=== PATIENT | female | born 1930 | race Caucasian/White ===

== ENCOUNTER 2017-03-27 13:53 | Observation (INO) ==
--- NOTE | 2017-03-27 18:29 | Orthopedic Consult Note ---
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 I did discuss the diagnosis in detail the patient. My strong suspicion based on history and physical exam is tophaceous gout with acute gouty flare. This can be associated with concurrent infection. My recommendation was for aspiration of the left index finger PIP joint with synovial fluid analysis. This will help establish the diagnosis. Informed consent was obtained and under sterile technique an 18-gauge needle was used to aspirate the left index finger proximal interphalangeal joint. About a quarter cc of chalky white fluid was aspirated consistent with gouty arthritis. The lab indicated that there was only enough fluid for Gram stain, culture, and crystal analysis. The fluid was sent for the studies. I did contact the lab shortly thereafter and uric acid crystals were identified. Minimal white blood cell count per high fire field and no organisms were seen on Gram stain. At this point my suspicion is low for infection and my recommendation at this point in the acute setting would be for anti- inflammatories and medical treatment for acute gouty flare and follow-up of the culture of the left index finger. I will follow her clinically, and she may require debridement of the left index finger proximal interphalangeal joint depending on culture results. 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 Price is a 86 year old female who was transferred from [place] emergency department with concern for her left index finger infection. The patient was admitted to the hospitalist and orthopedics was counseled that to assist in the evaluation and management. The patient has been complaining of about 2 weeks of left index finger pain without injury. It became red and swollen and she went to the emergency department today because of worsening pain. She was given a dose of Vancomycin. She reports no other joint pains or history of arthritis or gout. She denies any feelings of illness or inoculations are punctures to the left index finger. She has not had any formal workup or treatment for this. Pain is worse with movement and better at rest and is located right at the left index finger PIP joint. The pain is worse dorsally. It is described as sharp. No numbness, tingling, or any other associated signs or symptoms. No other modifying factors. Past Med Surg Social Fam HX - Past Medical History Medical history: coronary artery disease, hyperlipidemia, hypertension, myocardial infarction, thyroid disease Psychiatric history: no psych history - Past Surgical History Surgical History: orthopedic, other - Social History Smoking Status: Never smoker Smokeless Tobacco Status: No Alcohol use: none Drug use: none - Family History Mother Living Status: Hx Family Cardiac Disorders: Yes (CAD) Medications and Allergies Aspirin [Lo-Dose Aspirin EC] 81 mg PO DAILY 07/10/16 [History] Atenolol [Tenormin] 50 mg PO DAILY 07/10/16 [History] Citalopram [CeleXA] 20 mg PO DAILY 07/10/16 [History] Clopidogrel Bisulfate [Plavix] 75 mg PO DAILY 07/10/16 [History] Docusate [Colace] 100 mg PO DAILY #10 capsule 07/10/16 [Rx] Furosemide [Lasix] 40 mg PO DAILY 07/10/16 [History] Gabapentin [Neurontin] 600 mg PO HS 07/10/16 [History] Levothyroxine [Synthroid] 75 mcg PO 0630 07/10/16 [History] Lisinopril-HCTZ 10-12.5 [Prinzide 10-12.5] 1 each PO DAILY 07/10/16 [History] Simvastatin [Zocor] 40 mg PO HS 07/10/16 [History] Doxycycline Hyclate [Vibramycin] 100 mg PO BID 03/27/17 [History] Tramadol HCl [Ultram] 50 mg PO BID PRN 03/27/17 [History] Ibuprofen 400 mg PO Q8H PRN #20 tablet 03/28/17 [Rx] predniSONE [PredniSONE] 10 mg PO DAILY #31 tablet 03/28/17 [Rx] Allergies valsartan [From Diovan] Allergy (Verified 08/06/15 13:30) See Comments All Systems Reviewed: Constitutional and musculoskeletal systems were reviewed and are negative unless otherwise stated in history of present illness. Physical Exam - Constitutional Vitals: Temp Pulse Resp BP Pulse Ox 98.1 F 50 16 92/45 98 03/27/17 16:39 03/27/17 16:39 03/27/17 16:39 03/27/17 16:39 03/27/17 16:39 CONSTITUTIONAL -Vitals reviewed -The patient is well developed, well nourished, well groomed PSYCHIATRIC -Fully alert and oriented x 3 -Pleasant mood LEFT UPPER EXTREMITY Inspection of the index finger shows swelling and redness localized to the proximal interphalangeal joint. There is a subtle sheen of white below the skin consistent with tophaceous gout. The joint is focally tender. Motion is from about 20 degrees to 50 degrees with moderate pain. No instability of the PIP joint is noted. No other lesions noted about the left hand or deformities. No other tenderness is noted. No areas of drainage. The patient can actively flex and extend all digits, extend the thumb, cross the index and long fingers, make an okay sign, and oppose the thumb. The fingertips are all grossly sensate and well-perfused, and the radial artery pulses 2+. Diagnostic Imaging: I did personally review and interpret x-rays of the left index finger which show joint space narrowing at the proximal interphalangeal joint and nonspecific resorption of proximal phalangeal condylar bone. Focal soft tissue swelling at the PIP joint is noted at the index finger. Results - Labs Result Diagrams: 03/28/17 05:43 03/28/17 05:43 Labs: All other labs normal. Consult Discharge Plan - Plan Instructions: Hypothyroidism (DC), Chronic Hypertension (DC) Additional Instructions: Follow-up with orthopedic doctor within 2 weeks Referrals: Roman Becerril MD [Partnered Physician] - Prescriptions: Ibuprofen 400 mg PO Q8H PRN #20 tablet PRN Reason: Pain predniSONE [PredniSONE] 10 mg PO DAILY #31 tablet
[2017-03-27] MEDS ORDERED: Ibuprofen 400 MG TABLET PO PRN (19:48)
[2017-03-27] MEDS ORDERED: Naloxone 0.4 MG/ML INJ IVP PRN (19:48)
[2017-03-27] MEDS ORDERED: Colchicine 0.6 MG TABLET PO ONE ×2 (19:51→19:57)
[2017-03-27] MEDS ORDERED: Colchicine 0.6 MG TABLET PO SCH (20:00)
[2017-03-27] MEDS ORDERED: traMADol 50 MG TABLET PO PRN (20:29)
--- NOTE | 2017-03-27 20:57 | Internal Med History&Physical ---
Date of Encounter: 03/27/17 Time of Encounter: 20:54 Assessment and Plan (1) Gout attack Current visit: Yes Status: Acute PIP joint of index finger swollen, red and tender. Dr. Becerirl of orthopedic surgery assessed patient and feels this is consistent with gout attack. One dose of colchicine given, but as symptoms have been going on for greater than 3 days, will treat with prednisone. Hyperuricemia may be secondary to renal impairment as patient is in SAUNDRA. Once gout attack resolved consider starting prophylaxis with allopurinol. Qualifiers: Gout site: hand Gout etiology: unspecified cause Laterality: left Qualified Code(s): M10.9 - Gout, unspecified (2) SAUNDRA (acute kidney injury) Current visit: Yes Status: Acute BUN and creatinine elevated to 62 and 2.14 respectively. Hold lasix and lisinopril. IV fluids 0.9NS at 60mL/hr. UA ordered. Retroperitoneal ultrasound ordered. Consider consult to Nephrology. (3) Hypertension Current visit: Yes Status: Acute Holding lasix and lisinopril due to SAUNDRA. Patient's blood pressure has been well controlled since arrival. Continue home dose of atenolol. Hold for HR < 60 or SBP < 100. Qualifiers: Hypertension type: essential hypertension Qualified Code(s): I10 - Essential (primary) hypertension (4) Hypothyroid Current visit: Yes Status: Acute Continue home dose of synthroid Qualifiers: Hypothyroidism type: unspecified Qualified Code(s): E03.9 - Hypothyroidism , unspecified (5) DVT prophylaxis Current visit: Yes Status: Acute anti-embolic stockings Heparin SQ TID Internal Medicine - H&P: HPI Chief complaint: finger swelling, redness and tenderness Admitted From: Hospital to Hospital Transfer Plans for Post Hospital Care: Home History of present illness: Ms. Price is a 86 year old female with hypertension, hyperlipidemia, coronary artery disease, hypothyroid, presents from [place] [facility] with concern for septic arthritis. Patient reports that her left index finger started having swelling, redness, and tenderness about 2 weeks ago, and has progressively gotten worse over time. She presented to the urgent care a few days ago was diagnosed with cellulitis and given a prescription for doxycycline by mouth. She presented to the [place] ED as it was not getting better, they were concerned for osteomyelitis or septic arthritis and requested transfer to. Patient denies any fever, chills, sweats, body aches. Patient denies any nausea , vomiting, diarrhea. Dr. Rodriguez of orthopedic surgery evaluated patient and performed an aspiration of the joint, and feels that this is consistent with an acute gouty flare. Uric acid was elevated at 11. Patient's white blood cell count is normal at 9.2. Labs did reveal acute kidney injury with creatinine of 2.14 up from previous baseline of normal. Patient denies any known history of kidney problems. On exam, patient alert and oriented, in no acute distress. Lungs are clear bilaterally to auscultation, heart has regular rate and rhythm, abdomen soft nontender. Left index finger proximal interphalangeal joint with erythema, tenderness to palpation, and swelling. Past Med Surg Social Fam HX - Past Medical History Medical history: coronary artery disease, hyperlipidemia, hypertension, myocardial infarction, thyroid disease Psychiatric history: no psych history - Past Surgical History Surgical History: orthopedic, other - Social History Smoking Status: Never smoker Smokeless Tobacco Status: No Alcohol use: none Drug use: none - Family History Mother Living Status: Hx Family Cardiac Disorders: Yes (CAD) Internal Medicine - H&P: Meds Aspirin [Lo-Dose Aspirin EC] 81 mg PO DAILY 07/10/16 [History] Atenolol [Tenormin] 50 mg PO DAILY 07/10/16 [History] Citalopram [CeleXA] 20 mg PO DAILY 07/10/16 [History] Clopidogrel Bisulfate [Plavix] 75 mg PO DAILY 07/10/16 [History] Docusate [Colace] 100 mg PO DAILY #10 capsule 07/10/16 [Rx] Furosemide [Lasix] 40 mg PO DAILY 07/10/16 [History] Gabapentin [Neurontin] 600 mg PO HS 07/10/16 [History] Levothyroxine [Synthroid] 75 mcg PO 0630 07/10/16 [History] Lisinopril-HCTZ 10-12.5 [Prinzide 10-12.5] 1 each PO DAILY 07/10/16 [History] Simvastatin [Zocor] 40 mg PO HS 07/10/16 [History] Doxycycline Hyclate [Vibramycin] 100 mg PO BID 03/27/17 [History] Tramadol HCl [Ultram] 50 mg PO BID PRN 07/12/17 [History] Allergies valsartan [From [employer]] Allergy (Verified 08/06/15 13:30) See Comments All Systems PM: A 10-system review of systems was performed and is negative for pertinent findings except as documented above in the HPI. - Constitutional Constitutional: no chills, no fever(s), no night sweats - EENT Eyes: no change in vision, no discharge, no pain, no photophobia Ears: no ear discharge, no ear pain, no tinnitus Nose, mouth and throat: no dysphagia, no nasal discharge, no neck pain, no sore throat - Cardiovascular Cardiovascular ROS IM: no chest pain, no diaphoresis, no dyspnea, no lightheadedness, no palpitations, no syncope - Respiratory Respiratory: no cough, no dyspnea, no wheezing, no excessive phlegm production - Gastrointestinal Gastrointestinal: no abdominal pain, no diarrhea, no hematemesis, no hematochezia, no melena, no nausea, no vomiting - Genitourinary Genitourinary: no change in urinary stream, no dysuria, no flank pain, no hematuria - Musculoskeletal Musculoskeletal ROS IM: arthralgias (left index finger), joint swelling (left index finger), no numbness, no tingling - Integumentary Integumentary IM: erythema (left index finger), no rash, no unusual bruising - Neurological Neurological ROS: no confusion, no convulsions, no focal weakness, no numbness, no tingling, no tremor(s) - Hematologic/Lymphatic Hematologic/Lymphatic: no easy bruising - Constitutional Vitals: Temp Pulse Resp BP Pulse Ox 98.1 F 50 16 92/45 98 03/27/17 16:39 03/27/17 16:39 03/27/17 16:39 03/27/17 16:39 03/27/17 16:39 General appearance: Present: A&O X 3, pleasant, no acute distress - Head Head exam: Present: atraumatic, normocephalic - Eye Eye exam: Present: PERRL, conjuntiva pink, sclera anicteric Pupils: Present: PERRL - Neck Neck exam general surgery: Present: supple, trachea midline. Absent: lymphadenopathy - Respiratory Respiratory exam: Present: CTAB. Absent: accessory muscle use, rales, rhonchi, wheezes - Cardiovascular Cardiovascular exam: Present: RRR, +S1, +S2. Absent: diastolic murmur, gallop, rubs, systolic murmur - GI/Abdominal GI/Abdominal exam: Present: normal bowel sounds, soft, no peritoneal signs. Absent: distended, tenderness - Extremities Exam Extremities exam: Present: warm, radial pulses palpable and symetrical. Absent : calf tenderness, cyanotic, pedal edema - Expanded Upper Extremities Exam Hand wrist exam: Present: erythema (left index PIP), swelling (left index PIP), tenderness (left index PIP) - Neurological Exam Neurological exam: Present: CN II-XII intact, oriented X3, no focal deficits. Absent: pronater drift, facial droop, speech deficit - Skin Skin exam: Present: dry, intact Internal Med - H&P Results - Labs Labs: Labs from [place]: WBC 9.2 Hgb 11.3 Hct 32.9 Plt 307 Na 135 3.5 Cl 100 Co2 23 BUN 62 Cr 2.14 Glu 97 Uric acid 11
[2017-03-27] MEDS ORDERED: Doxycycline 100 MG CAPSULE PO SCH (21:00)
[2017-03-27] MEDS ORDERED: Gabapentin 300 MG CAPSULE PO SCH ×2 (21:00)
[2017-03-27] MEDS ORDERED: 0.9 % Sodium Chloride 1,000 ML IVC SCH (21:00)
[2017-03-27] MEDS: predniSONE 20 MG TABLET PO SCH (21:19)
[2017-03-28 06:52] LABS: Basophils % 0.3 %; Hematocrit 35.3 % (35.3-44.9); Hemoglobin 11.6 g/dL (11.5-15.4); Immature Granulocytes % 0.3 % (0-4); Lymphocytes # 1.3 K/mcL (0.6-4.6); Lymphocytes % 19.2 %; Mean Corpuscular HGB Conc 32.9 g/dL (31.6-35.5); Mean Corpuscular Hemoglobin 29.7 pg (28.0-33.3); Mean Corpuscular Volume 90.3 fL (83.0-100.0); Mean Platelet Volume 10.6 fL (9.4-12.4); Monocytes % 0.6 %; Neutrophils # 5.5 K/mcL (1.6-8.9); Platelet Count 327 K/mcL (140-400); Red Blood Count 3.91 M/mcL (3.82-4.97); Red Cell Distribution Width 12.5 % (11.5-14.5); Segmented Neutrophils % 79.6 %
[2017-03-28 06:55] LABS: Calcium 9.9 mg/dL (8.6-10.8); Potassium 3.2 mEq/L (3.5-4.5)
--- NOTE | 2017-03-28 08:05 | Orthopedics Progress Note ---
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 Focal swelling to the left index finger, mildly improved. She can grossly flex and extend the index PIP joint with less pain than yesterday. No drainage Intact sensation and good perfusion to the left index finger The other digits are freely mobile, sensory, and well-perfused. Crystal analysis shows uric acid crystals. 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 I will follow her clinically while in the hospital. She can follow-up with me in the office in 2 weeks as an outpatient when discharged. Objective Vital signs: Vital Signs Temp Pulse Resp BP Pulse Ox 03/28/17 07:37 98.0 F 53 16 96/50 97 03/28/17 00:20 98.4 F 59 15 119/51 96 03/27/17 16:39 98.1 F 50 16 92/45 98 Intake and Output 03/27/17 03/28/17 03/28/17 23:59 07:59 15:59 Intake Total 250 / 250 Output Total 0 / 0 Balance 250 / 250 Intake: Oral 250 / 250 Output: Urine 0 / 0 Other: Weight 62.2 kg - Labs CBC & BMP: 03/28/17 05:43 03/28/17 05:43 Labs: Abnormal lab results Potassium 3.2 mEq/L (3.5-4.5) L 03/28/17 05:43 BUN 54 mg/dL (7-20) H 03/28/17 05:43 Creatinine 1.33 mg/dL (0.57-1.11) H 03/28/17 05:43 Est GFR ( Amer) 46 (> 60) L 03/28/17 05:43 Est GFR (Non-Af Amer) 38 (> 60) L 03/28/17 05:43 BUN/Creatinine Ratio 41 (6-26) H 03/28/17 05:43 Glucose 140 mg/dL (70-99) H 03/28/17 05:43 Uric Acid 11.6 mg/dL (2.6-6.0) H 03/28/17 05:43 Consult Discharge Plan - Plan Referrals: NO,PCP [Primary Care Provider] -
[2017-03-28] MEDS: predniSONE 20 MG TABLET PO SCH (08:32)
[2017-03-28] MEDS ORDERED: Aspirin Enteric Coated 81 MG Tablet PO SCH (09:00)
[2017-03-28] MEDS ORDERED: Colchicine 0.6 MG TABLET PO SCH ×2 (09:00)
[2017-03-28 11:47] VITALS: BP 123/51
--- NOTE | 2017-03-28 14:21 | Discharge Summary ---
Date of Encounter: 03/28/17 Time of Encounter: 14:00 - Discharge Diagnosis (1) Gout attack Priority: Primary Status: Acute Comments: Seen by orthopedics were joint aspiration was obtained and culture was negative for signs of infection. Improved with prednisone and conservative management. Follow-up outpatient. Qualifiers: Gout site: hand Gout etiology: unspecified cause Laterality: left Qualified Code(s): M10.9 - Gout, unspecified (2) SAUNDRA (acute kidney injury) Priority: Primary Status: Acute Comments: Much improved overnight. Only one prior reading from 2014, not enough information for determination of chronic kidney disease however strong suspicion for chronic kidney disease, recommended close outpatient follow-up. (3) Hypokalemia Priority: Primary Status: Acute Comments: mild and asymptomatic, followup outpatient (4) Hypertension Priority: Secondary Status: Chronic Comments: Controlled, follow-up outpatient Qualifiers: Hypertension type: essential hypertension Qualified Code(s): I10 - Essential (primary) hypertension (5) Hypothyroid Priority: Secondary Status: Chronic Comments: No recent TSH, follow-up outpatient (6) DVT prophylaxis Priority: Primary Status: Acute Comments: Observation patient - Discharge Medications Prescriptions: Ibuprofen 400 mg PO Q8H PRN #20 tablet PRN Reason: Pain predniSONE [PredniSONE] 10 mg PO DAILY #31 tablet Home Medications: Aspirin [Lo-Dose Aspirin EC] 81 mg PO DAILY 07/10/16 [History] Atenolol [Tenormin] 50 mg PO DAILY 07/10/16 [History] Citalopram [CeleXA] 20 mg PO DAILY 07/10/16 [History] Clopidogrel Bisulfate [Plavix] 75 mg PO DAILY 07/10/16 [History] Docusate [Colace] 100 mg PO DAILY #10 capsule 07/10/16 [Rx] Furosemide [Lasix] 40 mg PO DAILY 07/10/16 [History] Gabapentin [Neurontin] 600 mg PO HS 07/10/16 [History] Levothyroxine [Synthroid] 75 mcg PO 0630 07/10/16 [History] Lisinopril-HCTZ 10-12.5 [Prinzide 10-12.5] 1 each PO DAILY 07/10/16 [History] Simvastatin [Zocor] 40 mg PO HS 07/10/16 [History] Doxycycline Hyclate [Vibramycin] 100 mg PO BID 03/27/17 [History] Tramadol HCl [Ultram] 50 mg PO BID PRN 03/27/17 [History] Ibuprofen 400 mg PO Q8H PRN #20 tablet 03/28/17 [Rx] predniSONE [PredniSONE] 10 mg PO DAILY #31 tablet 03/28/17 [Rx] Allergies/Adverse Reactions: Allergies valsartan [From Diovan] Allergy (Verified 08/06/15 13:30) See Comments Procedures/tests Complete & Pending: Procedures Performed prior 72 hours Category Date Time Status US retroperitoneal comp [US] Routine Exams 03/27/17 20:51 Completed Date of admission: 03/27/17 16:09 Primary care physician: PCP NO Consults: orthopedics were onboard in this admission Discharging clinician: Essence Velazquez Anticipated date of discharge: 03/28/17 - Patient Status Disposition: Home, Self-Care Condition: Good Functional capacity at discharge: independent ambulation Overall status at discharge: patient is back to baseline - Discharge Instructions Follow Up With: Roman Becerril MD [Partnered Physician] - Additional Instructions: Follow-up with orthopedic doctor within 2 weeks - Diet and Activity Activity: increase activity as tolerated Diet: low fat, low cholesterol, low salt diet Hospital course: Ms. Price is a 86 year old female with past medical history of hypertension, hyperlipidemia, CAD, hypothyroid. Patient was transferred from [place] emergency department for concern for possible septic arthritis. Patient stating her left index finger started to become swollen, red, and tender approximately 2 weeks prior to presentation and had gradually worsened over time. She presented to an outside urgent care a few days prior to this presentation and was diagnosed with cellulitis and given a prescription for doxycycline. She was not better which prompted her presentation to the [place] emergency department in the point they are worse concern for possible osteomyelitis or septic arthritis and the patient was transferred to [facility] where she was admitted to the hospitalist service for further evaluation and management. She had acute kidney injury upon presentation several retroperitoneal ultrasound was obtained which was unremarkable. There was only one prior set of renal functioning values which was from 2014. Her furosemide and lisinopril were held and she was given gentle IV fluids and her renal functioning improved while she was admitted. She was seen by orthopedics who performed a joint aspiration and diagnosed her with gout. The fluid from her finger was sent for studies and it was negative for signs of infections or antibiotics were discontinued. Orthopedic recommendations were for anti- inflammatories, prednisone, and follow-up outpatient in 2 weeks. Her uric acid levels were elevated but remained stable. Mild hypo-kalemia noted. Patient's pain significantly improved overnight and she requested to go home. She was discharged home in stable condition with close outpatient follow-up recommended. ITS Impressions Retroperitoneum Ultrasound 03/27/17 20:51 IMPRESSION: Question possible nonobstructing left nephrolithiasis. Elevated postvoid residual volume of the urinary bladder. Otherwise negative retroperitoneal ultrasound. D/ / Luis Santiago MD / Luis Santiago MD Interpreting Provider: Luis Santiago MD - Time Spent with Patient Total time spent providing and/or coordinating discharge services: - Constitutional Vitals: Temp Pulse Resp BP Pulse Ox 97.5 F L 65 17 123/51 97 03/28/17 11:46 03/28/17 11:46 03/28/17 11:46 03/28/17 11:46 03/28/17 11:46 General appearance: Present: A&O X 3, pleasant, no acute distress, answers questions appropriately - Head Head exam: Present: atraumatic, normocephalic - Eye Eye exam: Present: PERRL, conjuntiva pink, sclera anicteric Pupils: Present: PERRL - Neck Neck exam general surgery: Present: supple, trachea midline. Absent: lymphadenopathy - Respiratory Respiratory exam: Present: CTAB. Absent: accessory muscle use, rales, respiratory distress, rhonchi, wheezes - Cardiovascular Cardiovascular exam: Present: RRR, +S1, +S2. Absent: diastolic murmur, gallop, rubs, systolic murmur - GI/Abdominal GI/Abdominal exam: Present: normal bowel sounds, soft, no peritoneal signs. Absent: distended, tenderness - Extremities Exam Extremities exam: Present: warm, radial pulses palpable and symetrical. Absent : calf tenderness, cyanotic, pedal edema - Expanded Upper Extremities Exam Hand wrist exam: Present: erythema, swelling, tenderness (right index finger) Vascular exam: Present: normal capillary refill - Neurological Exam Neurological exam: Present: alert, CN II-XII intact, normal gait, oriented X3, no focal deficits, strengths equal and symetr throughout. Absent: pronater drift, facial droop, speech deficit - Skin Skin exam: Present: dry, intact, normal color, warm
== END 2017-03-28 15:46 | disposition home or self-care (01) ==
LOC: 3BNU
PROVIDERS: ADMIT Internal Medicine; ATTEND Nurse Practitioner Family

== ENCOUNTER 2017-07-18 00:15 | Inpatient (IN) ==
[2017-07-18] MEDS ORDERED: *HR* HYDROcodone/Acet 5/325 mg TABLET PO PRN (03:34)
[2017-07-18] MEDS ORDERED: Cefepime HCl 1,000 MG in D5% in Water (Mini-Bag+) 100 ML IVPB SCH (03:37)
[2017-07-18] MEDS ORDERED: Naloxone 0.4 MG/ML INJ IVP PRN (03:39)
[2017-07-18] MEDS ORDERED: Acetaminophen 325 MG TABLET PO PRN (03:39)
[2017-07-18] MEDS ORDERED: *HR* Morphine 2 MG/ML SYRINGE IVP PRN (03:39)
[2017-07-18] MEDS ORDERED: Ondansetron 4 MG/2 ML VIAL IVP PRN (03:39)
--- NOTE | 2017-07-18 03:48 | Internal Med History&Physical ---
Date of Encounter: 07/18/17 Time of Encounter: 03:45 Assessment and Plan (1) Sepsis Current visit: Yes Status: Acute Sepsis secondary to healthcare associated pneumonia, present upon admission. Severe respiratory distress also secondary to acute pulmonary edema from possible acute CHF exacerbation systolic versus diastolic Start cefepime and continue Levaquin, consider vancomycin if not improving Oxygen therapy, hold IV fluids due to volume overload, may continue strict I's and O's and daily weight, low dose of IV Lasix Echocardiogram, blood cultures Check lactic acid Oxygen therapy and BiPAP as needed Omeprazole for GI prophylaxis and subcutaneous heparin for DVT prophylaxis. Patient will be admitted as inpatient, expected to stay more than 2 midnights. Full code. Time spent on this admission 40 minutes. High risk for respiratory failure and sepsis Qualifiers: Sepsis type: sepsis due to unspecified organism Qualified Code(s): A41.9 - Sepsis, unspecified organism (2) Healthcare-associated pneumonia Current visit: Yes Status: Acute (3) Leukocytosis Current visit: Yes Status: Acute Qualifiers: Leukocytosis type: unspecified Qualified Code(s): D72.829 - Elevated white blood cell count, unspecified (4) Hypertension Current visit: No Status: Chronic Hold lisinopril due to hypotension Qualifiers: Hypertension type: essential hypertension Qualified Code(s): I10 - Essential (primary) hypertension (5) Coronary artery disease Current visit: No Status: Chronic Continue aspirin Qualifiers: Coronary Disease-Associated Artery/Lesion type: [place] artery [place] vs. transplanted heart: [place] heart Associated angina: without angina Qualified Code(s): I25.10 - Atherosclerotic heart disease of [place] coronary artery without angina pectoris (6) Congestive heart failure Current visit: No Status: Acute Systolic versus diastolic Qualifiers: Congestive heart failure type: unspecified congestive heart failure type Congestive heart failure chronicity: acute Qualified Code(s): I50.9 - Heart failure, unspecified Internal Medicine - H&P: HPI Chief complaint: Shortness of breath Admitted From: Emergency Dept History of present illness: Ms. Price is a 86 year old female with a past medical history of CAD status post stents, hypertension, peripheral artery disease, UTI with Pseudomonas and Proteus in the past, gout who was discharged from the hospital at the end of May and was [facility]. She was sent to the ER in [place] complaining of difficulty breathing accompanied with diaphoresis that was getting worse and Saturday, the notes from [place] mentions that she has been having thick sputum but the patient denies that. has been having a dry cough worse since Saturday. White cell count is 28.6, platelets are 491 heart rate is 106 apparently the patient was tachypneic with a respiratory rate of 34 , chest x-ray showed bilateral opacities with acute pulmonary edema but also possible multifocal pneumonia. She denies any sick contacts, venous pH is 7.29 , BNP is 267, patient's shortness of breath improved after using BiPAP and Lasix IV 60 mg. Also she was started on vancomycin and Levaquin. Complains of mild headaches on and off. Patient is very hard of hearing and is a very poor historian. Past Med Surg Social Fam HX - Past Medical History Medical history: coronary artery disease (Status post stents), hyperlipidemia, hypertension, myocardial infarction, peripheral artery disease, thyroid disease (Hypothyroidism), other (Depression, neuropathy, gout, left leg cellulitis, UTI with Pseudomonas and Proteus in the past) Psychiatric history: no psych history - Past Surgical History Surgical History: angioplasty/stent, appendectomy, orthopedic, other (Right wrist surgery, right knee surgery,) - Social History Smoking Status: Never smoker Smokeless Tobacco Status: No Alcohol use: none Drug use: none - Family History Mother Living Status: Hx Family Cardiac Disorders: Yes (CAD) Daughter Living Status: Still Living Hx Family Cardiac Disorders: No Hx Family Respiratory Disorders: No Hx Family Cancer: No Hx Family GI Disorders: No - Additional Family History Additional family history: Denies any family history Internal Medicine - H&P: Meds Aspirin [Lo-Dose Aspirin EC] 81 mg PO DAILY 07/10/16 [History] Atenolol [Tenormin] 50 mg PO DAILY 07/10/16 [History] Citalopram [CeleXA] 20 mg PO DAILY 07/10/16 [History] Clopidogrel Bisulfate [Plavix] 75 mg PO DAILY 07/10/16 [History] Furosemide [Lasix] 20 mg PO DAILY 07/10/16 [History] Gabapentin [Neurontin] 600 mg PO HS 07/10/16 [History] Levothyroxine [Synthroid] 75 mcg PO 0630 07/10/16 [History] Simvastatin [Zocor] 20 mg PO HS 07/10/16 [History] HYDROcodone/Acet 5/325 mg [[place] 5-325 mg] 1 tab PO Q6H PRN 05/16/17 [History] Lisinopril [Zestril] 5 mg PO HS tablet 06/16/17 [Rx] Cholecalciferol (Vitamin D3) [Vitamin D] 50,000 unit PO Q2W 07/17/17 [History] Iron Polysaccharide Complex [Ferrex 150] 150 mg PO DAILY 07/17/17 [History] Magnesium Hydroxide [Milk of Magnesia] 400 mg PO DAILY PRN 07/17/17 [History] Polyethylene Glycol 3350 [MiraLAX] 17 gm PO DAILY 07/17/17 [History] 3 Allergy/AdvReac Type Severity Reaction Status Date / Time No Known Allergies Allergy Verified 07/17/17 23:11 All Systems PM: A 10-system review of systems was performed and is negative for pertinent findings except as documented above in the HPI. Review of systems: Still short of breath, denies any chest pain, other systems out of the 10 reviewed were negative - Constitutional Vitals: Temp Pulse Resp BP Pulse Ox 98.2 F 85 15 96/56 97 07/18/17 03:16 07/18/17 03:16 07/18/17 03:16 07/18/17 03:16 07/18/17 03:16 General appearance: Present: A&O X 3 Exam: Very hard of hearing - Head Head exam: Present: atraumatic, normocephalic - Eye Eye exam: Present: PERRL, conjuntiva pink, sclera anicteric Pupils: Present: PERRL - Neck Neck exam general surgery: Present: supple, trachea midline. Absent: lymphadenopathy - Respiratory Respiratory exam: Present: decreased breath sounds (Bibasilar crackles), CTAB. Absent: accessory muscle use, rales, rhonchi, wheezes - Cardiovascular Cardiovascular exam: Present: RRR, +S1, +S2. Absent: diastolic murmur, gallop, rubs, systolic murmur - GI/Abdominal GI/Abdominal exam: Present: normal bowel sounds, soft, no peritoneal signs. Absent: distended, tenderness - Extremities Exam Extremities exam: Present: pedal edema (+1 pitting edema in both lower extremities), warm, radial pulses palpable and symmetrical. Absent: calf tenderness, cyanotic - Neurological Exam Neurological exam: Present: CN II-XII intact, oriented X3, no focal deficits. Absent: pronater drift, facial droop, speech deficit - Skin Skin exam: Present: dry, intact
[2017-07-18] MEDS: Cefepime HCl 1,000 MG in Water for inj. (sterile) 10 ML IVP SCH ×2 (04:15→16:12)
[2017-07-18] MEDS: *HR* Heparin 5,000 UNIT/ML VIAL SQ SCH ×3 (04:15→20:11)
[2017-07-18] MEDS: Ipratropium/Albuterol Neb 3 ML IH SCH ×4 (04:30→22:52)
[2017-07-18 04:33] LABS: Basophils % 0.2 %; Eosinophils % 0.1 %; Hematocrit 29.8 % (35.3-44.9); Hemoglobin 9.4 g/dL (11.5-15.4); Immature Granulocytes % 0.6 % (0-4); Lymphocytes # 2.1 K/mcL (0.6-4.6); Lymphocytes % 13.3 %; Mean Corpuscular HGB Conc 31.5 g/dL (31.6-35.5); Mean Corpuscular Hemoglobin 28.7 pg (28.0-33.3); Mean Corpuscular Volume 90.9 fL (83.0-100.0); Mean Platelet Volume 9.9 fL (9.4-12.4); Monocytes # 0.8 K/mcL (0.0-1.3); Monocytes % 5.5 %; Neutrophils # 12.4 K/mcL (1.6-8.9); Platelet Count 314 K/mcL (140-400); Red Blood Count 3.28 M/mcL (3.82-4.97); Segmented Neutrophils % 80.3 %
[2017-07-18 04:46] LABS: BUN/Creatinine Ratio 18 (6-26); Blood Urea Nitrogen 15 mg/dL (7-20); Calcium 9.6 mg/dL (8.6-10.8); Carbon Dioxide 24 mEq/L (19-29); Chloride 103 mEq/L (98-109); Glucose 134 mg/dL (70-99); Osmolality,Calculated 291 (280-300); Potassium 3.7 mEq/L (3.5-4.5); Sodium 139 mEq/L (136-145); eGFR For African Americans > 60 (> 60); eGFR For Non-African Americans > 60 (> 60)
[2017-07-18] MEDS: Aspirin Enteric Coated 81 MG Tablet PO SCH (09:06)
[2017-07-18] MEDS: Furosemide 20 MG/2 ML VIAL IVP SCH ×3 (09:06→17:35)
--- NOTE | 2017-07-18 17:16 | Internal Med Progress Note ---
Date of Encounter: 07/18/17 Time of Encounter: 12:00 - Assessment and plan (1) Sepsis Current Visit: Yes Status: Acute Assessment and plan: Pt did meet sepsis criteria with elevated WBC, source of as UTI and Pneumonia improving cont empirical abx Cefepime and Levaquin Qualifiers: Sepsis type: sepsis due to unspecified organism Qualified Code(s): A41.9 - Sepsis, unspecified organism (2) Acute respiratory failure with hypoxia Current Visit: Yes Status: Acute Assessment and plan: Due to pulm edema with CHF exacerbation cont IV diuresis and [place] no need of steroids (3) Diastolic CHF, acute on chronic Current Visit: Yes Status: Acute Assessment and plan: Reviewed 2 D Echo showed LVEF 60%, Moderate LV diastolic dysfunction Cont IV Lasix strict I & O cont ASA, Plavix , Atenolol, ACEI (4) Acute cardiac pulmonary edema Current Visit: Yes Status: Acute Assessment and plan: Due to diastolic CHF improving (5) UTI (urinary tract infection) Current Visit: No Status: Acute Assessment and plan: Cont Cefepime clay f/u on urine cx Qualifiers: Urinary tract infection type: acute cystitis Qualified Code(s): N30.00 - Acute cystitis without hematuria (6) Healthcare-associated pneumonia Current Visit: Yes Status: Acute Assessment and plan: Reviewed CXR showing patchy infiltrates in RML and LLL cont empirical abx (7) Hypertension Current Visit: No Status: Chronic Assessment and plan: stable with current meds Qualifiers: Hypertension type: essential hypertension Qualified Code(s): I10 - Essential (primary) hypertension (8) Hypothyroid Current Visit: No Status: Chronic Assessment and plan: on Levothyroxine Qualifiers: Hypothyroidism type: unspecified Qualified Code(s): E03.9 - Hypothyroidism , unspecified (9) DVT prophylaxis Current Visit: No Status: Acute Assessment and plan: on Heparin SQ - Subjective Interval history: Ms. Price is a 86 year old female with a past medical history of CAD status post stents, hypertension, peripheral artery disease, UTI with Pseudomonas and Proteus in the past, gout who was discharged from the hospital at the end of May and was residing at an [facility]. She was sent to the ER in [place] complaining of difficulty breathing accompanied with diaphoresis that was getting worse and Saturday, the notes from [place] mentions that she has been having thick sputum but the patient denies that. has been having a dry cough worse since Saturday. White cell count is 28.6, platelets are 491 heart rate is 106 apparently the patient was tachypneic with a respiratory rate of 34 , chest x-ray showed bilateral opacities with acute pulmonary edema but also possible multifocal pneumonia. Pt was admitted here and initially placed her on BiPAP and started on IV Lasix and empirical abx with Cefepime. Now pt is off the BiPAP, breathign comfortably on 2 lit O2. Denied any CP / SOB. No new complaints. Feels lot better today - Constitutional Vitals: Temp Pulse Resp BP Pulse Ox 98.1 F 65 16 108/42 95 07/18/17 15:24 07/18/17 15:24 07/18/17 15:24 07/18/17 15:24 07/18/17 15:24 General appearance: Present: A&O X 3 - Head Head exam: Present: atraumatic, normal inspection - Neck Neck exam general surgery: Present: supple - Respiratory Respiratory exam: Present: decreased breath sounds, rales (mild), wheezes (mild) . Absent: respiratory distress, rhonchi - Cardiovascular Cardiovascular exam: Present: +S1, +S2. Absent: systolic murmur - GI/Abdominal GI/Abdominal exam: Present: normal bowel sounds, soft. Absent: rebound, rigid, tenderness - Extremities Exam Extremities exam: Present: pedal edema (trace). Absent: calf tenderness, tenderness - Back Exam Back exam: Absent: CVA tenderness (L), CVA tenderness (R) - Psychiatric Psychiatric exam: Present: normal affect, normal mood Internal Medicine: Result - Labs CBC & Chem 7: 07/18/17 04:13 07/18/17 04:13 Labs: Short CBC 07/18/17 Range/Units 04:13 WBC 15.4 H (4.3-11.1) K/mcL Hgb 9.4 L D (11.5-15.4) g/dL Hct 29.8 L (35.3-44.9) % Plt Count 314 (140-400) K/mcL Neutrophils # 12.4 H (1.6-8.9) K/mcL BMP 07/18/17 04:13 Sodium 139 Potassium 3.7 Chloride 103 Carbon Dioxide 24 BUN 15 Creatinine 0.84 Glucose 134 H Calcium 9.6 - Impressions Impressions Echocardiogram 07/18/17 03:44 Impressions: LVEF 60%. Moderate left ventricular diastolic dysfunction. Normal right ventricular structure and function. Mild-moderate mitral regurgitation. Mild tricuspid regurgitation. Mild pulmonary hypertension. There is a trivial pericardial effusion present without tamponade. Left Ventricular Wall Motion: Rest Echo Findings All wall segments showed normal motion. Findings: Study Quality * Technically adequate exam. ECG Findings * Normal sinus rhythm. Left Ventricle * LVEF 60%. * Normal LV chamber size, wall thickness and function. * Moderate left ventricular diastolic dysfunction. Right Ventricle * Normal right ventricular structure and function. Left Atrium * Moderate-severely dilated left atrium. Right Atrium * Normal right atrial size. Aortic Valve * No aortic regurgitation. * Aortic valve not well visualized. * No aortic stenosis. Mitral Valve * Mild mitral annular calcification * Mildly sclerotic mitral valve leaflets. * Mild-moderate mitral regurgitation. * No mitral stenosis. Tricuspid Valve * Mild tricuspid regurgitation. * Normal tricuspid valve structure. * Estimated RA pressure is 8 mmHg. * Estimated RVSP is 44 mmHg. * Mild pulmonary hypertension. Pulmonic Valve * Pulmonic valve is not well visualized. * No pulmonic stenosis. * No pulmonic regurgitation. Pulmonary Artery * Pulmonary artery not well visualized. Aorta * Normally sized aortic root. Pericardium * There is a trivial pericardial effusion present. Interatrial Septum * No evidence of PFO by color Doppler. IVC * The IVC is not dilated. * < 50% respiratory change. Consult Discharge Plan - Plan Referrals: Arti Hooks MD [Primary Care Provider] - (PATIENT IS FROM [facility] NO PCP APPOINTMENT NEEDED)
[2017-07-18] MEDS ORDERED: Gabapentin 300 MG CAPSULE PO SCH (21:00)
[2017-07-18] MEDS ORDERED: Levofloxacin 750 MG/150 ML 750 MG/150 ML BAG IVPB SCH (23:00)
[2017-07-19] MEDS: Ipratropium/Albuterol Neb 3 ML IH SCH ×2 (04:03→10:51)
[2017-07-19] MEDS: Cefepime HCl 1,000 MG in Water for inj. (sterile) 10 ML IVP SCH (04:36)
[2017-07-19 04:43] LABS: Basophils # 0.1 K/mcL (0.0-0.2); Basophils % 0.7 %; Eosinophils # 0.3 K/mcL (0.0-0.6); Eosinophils % 2.7 %; Hematocrit 31.6 % (35.3-44.9); Hemoglobin 9.7 g/dL (11.5-15.4); Immature Granulocytes % 0.6 % (0-4); Lymphocytes # 3.1 K/mcL (0.6-4.6); Mean Corpuscular HGB Conc 30.7 g/dL (31.6-35.5); Mean Corpuscular Hemoglobin 28.3 pg (28.0-33.3); Mean Corpuscular Volume 92.1 fL (83.0-100.0); Monocytes # 0.6 K/mcL (0.0-1.3); Monocytes % 5.4 %; Neutrophils # 7.3 K/mcL (1.6-8.9); Platelet Count 336 K/mcL (140-400); Red Blood Count 3.43 M/mcL (3.82-4.97); Red Cell Distribution Width 15.2 % (11.5-14.5); Segmented Neutrophils % 63.6 %
[2017-07-19 04:55] LABS: BUN/Creatinine Ratio 21 (6-26); Blood Urea Nitrogen 19 mg/dL (7-20); Carbon Dioxide 29 mEq/L (19-29); Chloride 102 mEq/L (98-109); Glucose 100 mg/dL (70-99); Magnesium 1.5 mg/dL (1.6-2.6); Osmolality,Calculated 290 (280-300); Potassium 3.7 mEq/L (3.5-4.5); Sodium 139 mEq/L (136-145); eGFR For African Americans > 60 (> 60); eGFR For Non-African Americans 60 (> 60)
[2017-07-19] MEDS: *HR* Heparin 5,000 UNIT/ML VIAL SQ SCH (06:31)
[2017-07-19] MEDS: Aspirin Enteric Coated 81 MG Tablet PO SCH (08:25)
[2017-07-19] MEDS: Furosemide 20 MG/2 ML VIAL IVP SCH (08:25)
[2017-07-19 09:57] VITALS: BP 107/87
[2017-07-19] MEDS ORDERED: Magnesium Sulfate 2 GM in D5% in Water 100 ML IVPB ONE (10:10)
--- NOTE | 2017-07-19 10:37 | Discharge Summary ---
Date of Encounter: 07/19/17 Time of Encounter: 10:37 - Discharge Diagnosis (1) Sepsis Priority: Primary Status: Acute Qualifiers: Sepsis type: sepsis due to unspecified organism Qualified Code(s): A41.9 - Sepsis, unspecified organism (2) Acute respiratory failure with hypoxia Priority: Primary Status: Acute (3) Diastolic CHF, acute on chronic Priority: Primary Status: Acute (4) Acute cardiac pulmonary edema Priority: Secondary Status: Acute (5) UTI (urinary tract infection) Priority: Secondary Status: Acute Qualifiers: Urinary tract infection type: acute cystitis Qualified Code(s): N30.00 - Acute cystitis without hematuria (6) Healthcare-associated pneumonia Priority: Secondary Status: Resolved (7) Hypertension Priority: Secondary Status: Chronic Qualifiers: Hypertension type: essential hypertension Qualified Code(s): I10 - Essential (primary) hypertension (8) Hypothyroid Priority: Secondary Status: Chronic Qualifiers: Hypothyroidism type: unspecified Qualified Code(s): E03.9 - Hypothyroidism , unspecified (9) DVT prophylaxis Priority: Secondary Status: Acute - Discharge Medications Prescriptions: Cephalexin [Keflex] 500 mg PO TID #9 capsule Home Medications: Aspirin [Lo-Dose Aspirin EC] 81 mg PO DAILY 07/10/16 [History] Atenolol [Tenormin] 50 mg PO DAILY 07/10/16 [History] Citalopram [CeleXA] 20 mg PO DAILY 07/10/16 [History] Clopidogrel Bisulfate [Plavix] 75 mg PO DAILY 07/10/16 [History] Gabapentin [Neurontin] 600 mg PO HS 07/10/16 [History] Levothyroxine [Synthroid] 75 mcg PO 0630 07/10/16 [History] HYDROcodone/Acet 5/325 mg [[place] 5-325 mg] 1 tab PO Q6H PRN 05/16/17 [History] Lisinopril [Zestril] 5 mg PO HS tablet 06/16/17 [Rx] Cholecalciferol (Vitamin D3) [Vitamin D3] 50,000 unit PO Q2W 07/17/17 [History] Iron Polysaccharide Complex [Ferrex 150] 150 mg PO DAILY 07/17/17 [History] Magnesium Hydroxide [Milk of Magnesia] 400 mg PO DAILY PRN 07/17/17 [History] Polyethylene Glycol 3350 [MiraLAX] 17 gm PO DAILY 07/17/17 [History] Atorvastatin Calcium [Lipitor] 20 mg PO DAILY 07/18/17 [History] Potassium Chloride [Klor-Con 10] 10 meq PO DAILY 07/18/17 [History] Furosemide [Lasix] 20 mg PO BID #0 07/19/17 [Rx] Levofloxacin [Levaquin] 500 mg PO DAILY #4 tablet 07/19/17 [Rx] Allergies/Adverse Reactions: 3 Allergy/AdvReac Type Severity Reaction Status Date / Time No Known Allergies Allergy Verified 07/17/17 23:11 Procedures/tests Complete & Pending: Procedures Performed prior 72 hours Category Date Time Status EV echocardiogram Routine Y 07/18/17 03:44 Completed Date of admission: 07/18/17 04:03 Primary care physician: Arti Hooks - Patient Status Disposition: Transfer SNF Condition: Good Overall status at discharge: patient is back to baseline - Discharge Instructions Follow Up With: Arti Hooks MD [Primary Care Provider] - (PATIENT IS FROM [facility] NO PCP APPOINTMENT NEEDED) - Diet and Activity Activity: as per physical therapy, increase activity as tolerated Diet: low salt diet Hospital course: Ms. Price is a 86 year old female with a past medical history of CAD status post stents, hypertension, peripheral artery disease, UTI with Pseudomonas and Proteus in the past, gout who was discharged from the hospital at the end of May and was residing at an [facility]. She was sent to the ER in [place] complaining of difficulty breathing accompanied with diaphoresis that was getting worse and Saturday, the notes from [place] mentions that she has been having thick sputum but the patient denies that. has been having a dry cough worse since Saturday. White cell count is 28.6, platelets are 491 heart rate is 106 apparently the patient was tachypneic with a respiratory rate of 34 , chest x-ray showed bilateral opacities with acute pulmonary edema but also possible multifocal pneumonia. Pt was admitted here and initially placed her on BiPAP and started on IV Lasix and empirical abx with Cefepime. Her symptoms resolved so quickly. She is off the BiPAP more than 36hrs and she is breathing comfortably on RA now. She does required O2 at night time at 2 lit. Her WBC also trended down to 11.4. Blood cx NGTD. Since she had urine cx positive for Pseudomonas with Levofloxacin sensitive in the past will d/c her back to ECF today with 4 more dyas of Levofloxacin. Regarding her pulm edema which seems to be due to diastolic CHF exacerbation, recommend to continue Lasix 20mg PO BID x 5 days then continue daily. - Time Spent with Patient Total time spent providing and/or coordinating discharge services: - Constitutional Vitals: Temp Pulse Resp BP Pulse Ox 97.8 F 61 18 107/87 95 07/19/17 06:00 07/19/17 07:30 07/19/17 06:00 07/19/17 06:00 07/19/17 06:00 General appearance: Present: A&O X 3, no acute distress - Head Head exam: Present: atraumatic, normal inspection - Neck Neck exam general surgery: Present: supple - Respiratory Respiratory exam: Present: decreased breath sounds. Absent: rales, respiratory distress, rhonchi, wheezes - Cardiovascular Cardiovascular exam: Present: RRR, +S1, +S2. Absent: systolic murmur - GI/Abdominal GI/Abdominal exam: Present: normal bowel sounds, soft. Absent: rebound, rigid, tenderness - Extremities Exam Extremities exam: Present: pedal edema (Improving pedal edema). Absent: calf tenderness, tenderness - Back Exam Back exam: Absent: CVA tenderness (L), CVA tenderness (R) - Neurological Exam Neurological exam: Present: alert, oriented X3 - Psychiatric Psychiatric exam: Present: normal affect, normal mood
--- NOTE | 2017-07-19 10:44 | Physician Discharge Referral ---
ExtendedCare Referral Info Transfer To: ECF Provider in Charge after Transfer: PCP Institutional Level of Care: Skilled - Diagnosis (1) Sepsis Status: Acute (2) Acute respiratory failure with hypoxia Status: Acute (3) Diastolic CHF, acute on chronic Status: Acute (4) Acute cardiac pulmonary edema Status: Acute (5) UTI (urinary tract infection) Status: Acute (6) Healthcare-associated pneumonia Status: Resolved (7) Hypertension Status: Chronic (8) Hypothyroid Status: Chronic (9) DVT prophylaxis Status: Acute - Transfer Medications Prescriptions: Levofloxacin [Levaquin] 500 mg PO DAILY #4 tablet Home Medications: Aspirin [Lo-Dose Aspirin EC] 81 mg PO DAILY 07/10/16 [History] Atenolol [Tenormin] 50 mg PO DAILY 07/10/16 [History] Citalopram [CeleXA] 20 mg PO DAILY 07/10/16 [History] Clopidogrel Bisulfate [Plavix] 75 mg PO DAILY 07/10/16 [History] Gabapentin [Neurontin] 600 mg PO HS 07/10/16 [History] Levothyroxine [Synthroid] 75 mcg PO 0630 07/10/16 [History] HYDROcodone/Acet 5/325 mg [[place] 5-325 mg] 1 tab PO Q6H PRN 05/16/17 [History] Lisinopril [Zestril] 5 mg PO HS tablet 06/16/17 [Rx] Cholecalciferol (Vitamin D3) [Vitamin D3] 50,000 unit PO Q2W 07/17/17 [History] Iron Polysaccharide Complex [Ferrex 150] 150 mg PO DAILY 07/17/17 [History] Magnesium Hydroxide [Milk of Magnesia] 400 mg PO DAILY PRN 07/17/17 [History] Polyethylene Glycol 3350 [MiraLAX] 17 gm PO DAILY 07/17/17 [History] Atorvastatin Calcium [Lipitor] 20 mg PO DAILY 07/18/17 [History] Potassium Chloride [Klor-Con 10] 10 meq PO DAILY 07/18/17 [History] Furosemide [Lasix] 20 mg PO BID #0 07/19/17 [Rx] Levofloxacin [Levaquin] 500 mg PO DAILY #4 tablet 07/19/17 [Rx] Allergies/Adverse Reactions: 3 Allergy/AdvReac Type Severity Reaction Status Date / Time No Known Allergies Allergy Verified 07/17/17 23:11 - Respiratory Orders Smoking Cessation: Smoking cessation has been advised. For more information, call the [place] Tobacco Quit Line at 3-701-IXTL-NOW. CERTIFICATION: I certify that the transfer of the above named patient to an Extended Care Facility is necessary for the continuing treatment of the diagnosis listed. The above information is true and accurate reflection of patient's current condition. Confidential - Redisclosure prohibited without a patient's written consent.
== END 2017-07-19 14:46 | DRG 871 ==
LOC: 2NNU
PROVIDERS: ADMIT Pediatrics; ATTEND Family Medicine